=== PATIENT | female | born 1995 | race Caucasian/White ===

== ENCOUNTER 2021-10-09 12:44 | Inpatient (IN) | payer OTHER ==
[2021-10-09] MEDS ORDERED: DEXTROSE 5%-LACTATED RINGERS 1,000 ML IV SCH (13:30)
[2021-10-09 14:39] VITALS: BMI 29.9
[2021-10-09 15:43] LABS: BASO % 0.2 % (0-2.0); EOS % 0.5 % (0-4.5); HEMATOCRIT 36.2 % (32.4-45.2); HEMOGLOBIN 12.1 GM/dL (10.7-15.3); LYMPH % 21.6 % (8-40); MCH 27.4 pg (25.7-33.7); MCHC 33.6 g/dl (32.0-36.0); MEAN CELL VOLUME 81.6 fl (80-96); MEAN PLT VOLUME 8.1 fl (7.5-11.1); MONO % 6.9 % (3.8-10.2); NEUT % 70.8 % (42.8-82.8); PLATELET COUNT 248 10^3/uL (134-434); RBC 4.44 M/mm3 (3.60-5.2); RDW 15.2 % (11.6-15.6); WHITE BLOOD COUNT 8.5 K/mm3 (4.0-10.0)
[2021-10-09 15:49] LABS: INR 0.97 (0.83-1.09); PROTHROMBIN TIME (PATIENT) 11.1 SEC (9.7-13.0)
[2021-10-09 15:53] LABS: CALCIUM 8.7 mg/dL (8.5-10.1)
[2021-10-09 15:54] LABS: BLOOD UREA NITROGEN 7.2 mg/dL (7-18)
[2021-10-09 15:57] LABS: CREATININE 0.5 mg/dL (0.55-1.3)
[2021-10-09 16:18] LABS: SYPHILIS W/ RPR CONF NON-REACTIVE (NONREACTIVE)
[2021-10-09 16:47] LABS: HIV INTERPRETATION NEGATIVE (NEGATIVE)
[2021-10-09] MEDS ORDERED: OXYTOCIN 30 UNITS in 0.9% NS 30 UNIT/500 ML INFUS.BAG IVPB ONE (18:25)
[2021-10-09] MEDS ORDERED: OXYTOCIN 30 UNITS in 0.9% NS 30 UNIT/500 ML INFUS.BAG IVPB SCH (18:30)
[2021-10-09] MEDS ORDERED: ELECTROLYTE-148 SOLN 500 ML IV SCH ×2 (19:00→19:30)
[2021-10-09] MEDS ORDERED: FENTANYL/BUPIVACAINE/NS/PF - PCEA - 50 ML DISP.SYRIN EP ONE (19:21)
[2021-10-09] MEDS ORDERED: NALOXONE HCL 0.4 MG/ML VIAL IVPUSH PRN (20:16)
[2021-10-09] MEDS ORDERED: LIDOCAINE HCL 1% PRESERVATIVE FREE - 30ML VIAL ONE (20:16)
[2021-10-09] MEDS ORDERED: OXYTOCIN 20 UNITS in 0.9% NS 20 UNIT/1,000 ML INFUS.BAG IV ONE ×2 (20:16→23:33)
[2021-10-09] MEDS ORDERED: FENTANYL/BUPIVACAINE/NS/PF - PCEA - 50 ML DISP.SYRIN EP SCH (20:30)
[2021-10-09] MEDS ORDERED: METHYLERGONOVINE MALEATE 0.2 MG/1 ML AMP IM ONE ×2 (22:30→22:31)
[2021-10-09] MEDS ORDERED: MISOPROSTOL 200 MCG TABLET ONE (22:34)
[2021-10-09] MEDS ORDERED: CARBOPROST TROMETHAMINE 250 MCG/ML AMPUL IM ONE (22:36)
[2021-10-09] MEDS ORDERED: MISOPROSTOL 200 MCG TABLET NR ONE (22:37)
[2021-10-09 23:09] LABS: HEMATOCRIT 30.9 % (32.4-45.2); HEMOGLOBIN 10.5 GM/dL (10.7-15.3); MCH 27.6 pg (25.7-33.7); MCHC 34.2 g/dl (32.0-36.0); MEAN CELL VOLUME 80.8 fl (80-96); MEAN PLT VOLUME 8.1 fl (7.5-11.1); PLATELET COUNT 256 10^3/uL (134-434); RBC 3.82 M/mm3 (3.60-5.2); RDW 15.2 % (11.6-15.6); WHITE BLOOD COUNT 12.7 K/mm3 (4.0-10.0)
[2021-10-09] MEDS ORDERED: CEFAZOLIN SODIUM 2 GM in DEXTROSE 5%-WATER 100 ML IVPB ONE (23:15)
[2021-10-09] MEDS ORDERED: BENZOCAINE 28 GM HEMORRHOIDAL OINTMENT TP PRN (23:16)
[2021-10-09] MEDS ORDERED: ACETAMINOPHEN 325 MG TABLET (FP) PO PRN (23:16)
[2021-10-09] MEDS ORDERED: BENZOCAINE 20% 57 GM BOTTLE TP PRN (23:16)
[2021-10-09] MEDS ORDERED: oxyCODONE HCL 5 MG TABLET PO PRN (23:16)
[2021-10-09] MEDS ORDERED: METHYLERGONOVINE MALEATE 0.2 MG/1 ML AMP IM PRN (23:16)
[2021-10-09] MEDS ORDERED: BISACODYL 10 MG SUPP.RECT RC PRN (23:16)
[2021-10-09] MEDS ORDERED: WITCH HAZEL 50% (TUCKS) 40 PAD/JAR PAD TP PRN (23:16)
[2021-10-09] MEDS ORDERED: ceFAZolin SODIUM 1 GM VIAL ONE (23:27)
[2021-10-09] MEDS ORDERED: OXYTOCIN 20 UNITS in 0.9% NS 20 UNIT/1,000 ML INFUS.BAG IV SCH (23:30)
[2021-10-10] MEDS: IBUPROFEN 600 MG TABLET (FP) PO PRN ×4 (03:11→21:56)
[2021-10-10] MEDS: FERROUS SO4 325 MG TABLET (FP) PO SCH ×3 (08:17→18:42)
[2021-10-10 08:55] LABS: BASO % 0.2 % (0-2.0); HEMATOCRIT 29.1 % (32.4-45.2); HEMOGLOBIN 10.2 GM/dL (10.7-15.3); LYMPH % 12.6 % (8-40); MCHC 35.1 g/dl (32.0-36.0); MEAN CELL VOLUME 82.6 fl (80-96); MEAN PLT VOLUME 8.5 fl (7.5-11.1); MONO % 8.3 % (3.8-10.2); NEUT % 78.9 % (42.8-82.8); PLATELET COUNT 206 10^3/uL (134-434); RBC 3.52 M/mm3 (3.60-5.2); RDW 15.7 % (11.6-15.6); WHITE BLOOD COUNT 16.5 K/mm3 (4.0-10.0)
[2021-10-10] MEDS ORDERED: DIPHTH,PERTUSS(ACELL),TET 0.5 ML DISP.SYRIN IM ONE (10:00)
[2021-10-10] MEDS: PRENATAL VITAMINS W/ FOLIC ACID TABLET (FP) PO SCH (11:04)
[2021-10-10] MEDS ORDERED: SENNOSIDES/DOCUSATE COMBO (SENNA PLUS) TABLET (UD) PO PRN (22:00)
[2021-10-11] MEDS: FERROUS SO4 325 MG TABLET (FP) PO SCH (09:50)
[2021-10-11] MEDS: PRENATAL VITAMINS W/ FOLIC ACID TABLET (FP) PO SCH (09:50)
[2021-10-11 12:15] VITALS: BP 104/69; PULSE 93; RESP 16; TEMP 98.2
== END 2021-10-11 13:00 | disposition home or self-care (01) | DRG 560 ==
LOC: JDEL 12:44 → JLDR 13:30 → J3W 10-10 02:10
PROVIDERS: ADMIT Obstetrics & Gynecology; ATTEND Obstetrics & Gynecology
PROC: 10E0XZZ Delivery of Products of Conception, External Approach (ICD-10-PCS; principal; 2021-10-09)
PROC: 0W8NXZZ Division of Female Perineum, External Approach (ICD-10-PCS; 2021-10-09)
PROC: 10907ZC Drainage of Amniotic Fluid, Therapeutic from Products of Conception, Via Natural or Artificial Opening (ICD-10-PCS; 2021-10-09)
DX: O66.0 Obstructed labor due to shoulder dystocia (principal); O72.1 Other immediate postpartum hemorrhage; Z3A.39 39 weeks gestation of pregnancy; Z37.0 Single live birth
CPT/HCPCS: 36415; 36430; 36511; 59409; 80048; 85025; 85027; 85610; 85730; 86762; 86780; 86850; 86900; 86901; 86922; 87340; 87389; 90715; C9803-CS; P9038; P9058; U0003; U0005